=== PATIENT | female | born 1965 | race Caucasian/White ===

== ENCOUNTER → 2016-08-25 | Outpatient (CLI) | payer BC, OTHER ==
[~2016-08-25] MED LIST: ALPR1TAB6 PO; BACL10TA PO; BYSTOLIC5 MG PO; CLON1TAB3 PO; DIAZ5TAB PO; ESCI5TAB8 PO; FENT1PAT91 TD; FLUO20CA16 PO; FURO-68 PO; HYDR4TAB PO; LINA145C PO; MAGN71.5 PO; MORP100T PO; MORP100T30 PO; MORP30TA PO; MORPHINE; OLAN5TAB3 PO; OXYC20TA PO; OXYC20TA34 PO; PHEN37.568 PO; PREG75CA PO; RIVA20TA2 PO; SUMA1TAB2 PO; TIZA4CAP3 PO; TIZA6CAP3 PO; TOPI25TA32 PO; VARE1TAB21 PO; ZOLP12.54 PO; phenergan; vitamin d 3
--- NOTE | 2016-08-25 19:17 | PAIN ---
DATE OF SERVICE: 08/25/2016 PROGRESS NOTE DIAGNOSES: Atypical facial pain. HISTORY OF PRESENT ILLNESS: The patient is a 51-year-old female, who returns for followup status post medication management with both MS Contin and MS-IR. The patient reports she is doing fairly stable ____ with her medication regimen. Her pain has never quite gone in the face in general and is fairly well controlled; however, by about 70%-75% overall without significant side effects. The patient is somewhat depressed today. She has recently been diagnosed with the pancreatic mass about a week ago when she is having a biopsy of the mass tomorrow morning at ____ [facility], explained confirm the diagnosis as it is suspected pancreatic carcinoma. The patient has had a 20 pound weight loss since her last visit and is feeling very lethargic, also some increased abdominal and the mid low back pain. The patient reports the pain as 7 on a scale of 10, describes as sharp, aching and across the low back as well as the abdomen in the center of the abdomen. The patient reports she is having difficulty keeping food down, has even liquids are difficult throughout to keep down secondary to nausea and emesis. The patient describes no new motor or sensory deficits; however, no new other changes besides that mentioned. PHYSICAL EXAMINATION: VITAL SIGNS: Today, blood pressure 112/72, pulse 83, respirations 18, temperature 98.2 degrees Fahrenheit, height is 5 feet 4 inches, weight is 132 pounds. GENERAL: The patient is awake, alert, oriented, appropriate, very pleasant demeanor. HEENT: Head shows normocephalic, atraumatic. The patient shows extraocular movements intact and symmetrical. Oral cavity shows difficulty with mouth opening more than about 5 cm with significant pain and tenderness to palpation over the mastoid her muscles with hypertrophy of the master's noted on palpation as well with tenderness even with moderate palpation. The patient's good rotation or motion of cervical spine; however, including extension and flexion without significant difficulty. CHEST: Shows normal on inspection. Breath sounds are clear to auscultation bilaterally. HEART: Shows S1 and S2 clear. No murmurs are auscultated. ABDOMEN: Soft, but tender in the epigastric region, even with light palpation with some minor guarding and noted on palpation. Options were discussed with the patient and the patient's old chart was reviewed. Her current medication regimen updated. Current review of systems updated today as well. We will refill the patient's MS Contin and MS-IR as well as Topamax and Zanaflex. The patient will follow up in approximately 90 days or sooner. We discussed this in some detail of the pending diagnosis with her pancreatic biopsy tomorrow and depending on further treatment such as chemotherapy, etc. ____ follow up sooner than her 90-day appointment, if the medication adjustments need to be made. The patient understands and will follow up as necessary. The patient was given instruction as well as side effects with medication. SOM ORDONEZ MD DR: DANIEL/carlos JOB#: [id number] / [id number]
== END | disposition home or self-care (01) ==
LOC: PNCL 12:40
PROVIDERS: ATTEND Anesthesiology
DX: G50.1 Atypical facial pain (principal)
CPT/HCPCS: G0463

== ENCOUNTER → 2016-11-21 | Outpatient (CLI) | payer OTHER ==
[~2016-11-21] MED LIST changes: -ESCI5TAB8 PO; +LEXAPRO5 MG PO; -PHEN37.568 PO; +PHEN37.598 PO; -TOPI25TA32 PO; +TOPI25TA52 PO
--- NOTE | 2016-11-22 06:20 | PAIN ---
DATE OF SERVICE: 11/21/2016 DIAGNOSIS: Atypical facial pain. HISTORY OF PRESENT ILLNESS: The patient is a 51-year-old female who returns for followup status post medication management with both MS Contin and also taking Zanaflex and Topamax. The patient reports she has been on a very stable regimen of this and has been having fairly well controlled facial pain as she has previously without significant change. The patient reports her pain is a 9 on a scale of 10 at its worst and is a 5 at its least, and its average is about 6 on a scale of 10. The patient reports aching, sharp, shooting, dull, cramping, stabbing, burning and radiating severe in the bilateral masseter distributions mainly in the face and jaw. The patient reports no new motor or sensory deficits, no new changes. No side effects with the medication. Reports about 75% improvement in the pain with the medications without significant side effects. The patient is maintaining hydration, has no constipation, no dizzy, nausea, itching or dysphoria. PHYSICAL EXAMINATION: VITAL SIGNS: Today, the patient's blood pressure 133/84, pulse 67, respirations are 18, temperatures refused, weight is 136 pounds, height is 5 feet 4 inches. GENERAL: The patient is awake, alert, oriented, appropriate, very pleasant demeanor. HEENT: Shows roughly normocephalic and atraumatic. The patient does have clenched teeth appearance when she speaks does not move her mouth or open very far secondary to pain reported in the masseter and jaw region. The patient's neck shows anterior throat supple without palpable lymphadenopathy noted. Swallow reflex is symmetrical. Neck shows full rotational motion of cervical spine without significant difficulty or limitation. CHEST: Shows normal on inspection. Breath sounds clear to auscultation bilaterally. HEART: Shows S1 and S2 clear. No murmurs auscultated. ABDOMEN: Soft, nontender, nondistended. BACK: The patient's back shows spine grossly in the midline. Cervical paraspinous muscle shows symmetrical without evidence of atrophy or hypertrophy. The patient shows good rotational motion of cervical spine, both laterally as well as full extension, full forward flexion without significant exacerbation of pain. Options were discussed with the patient. The patient's old chart was reviewed as her current medication regimen updated. Current review of systems updated today as well and we will refill the patient's MS Contin ____ mg q. 12 hours. Also, continue taking Zanaflex 6 mg ____ times a day and Topamax daily. The patient was given instructions for side effects to be aware of medications, especially cautioned that is ____ constipation and taking measures to secure the medication, keep it safe and locked. The patient understands and agrees. Followup in approximately 90 days or sooner if necessary. The patient was given a 3-month prescription of each of the medications and will follow up as scheduled. SOM ORDONEZ MD DR: DANIEL/carlos JOB#: [id number] / [id number]
== END | disposition home or self-care (01) ==
LOC: PNCL 13:15
PROVIDERS: ATTEND Anesthesiology
DX: G50.1 Atypical facial pain (principal)
CPT/HCPCS: G0463

== ENCOUNTER → 2017-02-13 | Outpatient (CLI) | payer OTHER ==
[~2017-02-13] MED LIST changes: +RANI150T6 PO; +URSO300C13 PO; +[UNRECOGNIZED DRUG - OTHER]
--- NOTE | 2017-02-14 00:54 | PN ---
DATE: 02/13/2017 PROGRESS NOTE FOR PAIN CLINIC. DIAGNOSIS: Atypical facial pain. HISTORY OF PRESENT ILLNESS: The patient is a 51-year-old female who returns for followup status post medication management with both MS Contin and MSIR. The patient is a 51-year-old female who returns with reports of good control of her medication with a stable regimen of the pain medication. Also, taking trazodone and Zanaflex for muscle relaxation, which she reports both do help decrease the pain. She is having some abdominal situation with some gallbladder issues. She reportedly has spasticity of the gallbladder as well as gallstones and is seeing a patent examiner for this currently. The patient reports that her pain in the neck and the jaw is aching, sharp, dull, shooting, stabbing, constant, severe, radiating and becomes unbearable. It is a 9 on a scale of 10 at its worst, 5 on average and about 4 on a scale of 10 at its least. The patient reports no new side effects with the medication. No difficulty with the medicine regimen and reports approximately a 70% to 75% improvement with medication alone. The patient reports no constipation. No drowsiness, dizziness, itching or other complaints. The patient's K-TRACS reportedly have been appropriate to date as has her urinalysis today and we will have a urinalysis taken today as well. PHYSICAL EXAMINATION: VITAL SIGNS: The patient's blood pressure is 104/72, pulse 60, respirations are 18 and temperature is 98.2 degrees Fahrenheit, height is 5 feet 4 and she weighs 135 pounds. GENERAL: The patient is awake, alert, oriented, appropriate, has a very pleasant demeanor. HEENT: Head shows normocephalic, atraumatic. Extraocular movements are intact, symmetrical. Oral cavity, mucous membranes are moist and pink. Examination shows some moderate difficulty with opening of the mouth secondary to pain, and the patient does have a clenched jaw appearance on initial presentation. Talking with not moving her mouth necessary. Dentition is intact; however, oral cavity shows mucous membranes moist and pink. Again, significant tenderness with palpation over the TMJ, left and the right side as well, but much more tender on the left side. Some mild hypertrophy of the masseter muscle is palpable as well, left greater than right, but present and tender, with some firm musculature on palpation bilaterally. NECK: Shows anterior throat supple, without palpable lymphadenopathy noted. Swallow reflex is symmetrical. CHEST: Shows normal on inspection. Breath sounds are clear to auscultation bilaterally. HEART: Shows S1 and S2 clear. No murmurs are auscultated. ABDOMEN: Obese, soft, nontender and nondistended. No palpable organomegaly is noted. No rebound or guarding demonstrated. BACK: The patient's back shows spine grossly in the midline. Normal-appearing thoracic kyphosis and lumbar lordotic curvature. Options were discussed with the patient. The patient's old chart was reviewed as her current medication regimen updated. Current review of systems updated today as well. We will refill the patient's MS Contin as well as MSIR. The patient was given instructions as well as side effects to be aware of. Also, we will refill the patient's Topamax as well as Zanaflex with instructions and side effects to be aware of each of her medications. Also discussed hydration level and cautioned against preventing constipation as this may be common with her opiate medications, although she has not had any difficulty with it in the past. The patient also will follow up with her primary care physician to better evaluate her gallbladder situation and possibly talk to a general surgeon regarding removal if indicated. The patient will follow up in approximately 90 days, was given a 90-day supply of her medications with instructions, side effects again discussed and we will follow up as scheduled. SOM ORDONEZ MD DR: DANIEL/carlos JOB#: [id number] / [id number]
== END | disposition home or self-care (01) ==
LOC: PNCL 12:56
PROVIDERS: ATTEND Anesthesiology
DX: M54.2 Cervicalgia (principal); G50.1 Atypical facial pain
CPT/HCPCS: 99212

== ENCOUNTER → 2017-05-09 | Outpatient (CLI) | payer OTHER ==
[~2017-05-09] MED LIST changes: +SUCR1TAB35 PO
--- NOTE | 2017-05-09 23:40 | PAIN ---
DATE OF SERVICE: 05/09/2017 DIAGNOSIS: Atypical facial pain. HISTORY OF PRESENT ILLNESS: The patient is a 51-year-old female who presents for a followup status post medication management with both MS Contin and MS IR as well as Zanaflex and Topamax for headaches. The patient reports she has been doing very well with this, has been on a very stable regimen. She recently had a laparoscopic cholecystectomy and we had covered her with some extra MS IR to take, discussed it with her about a week ago. The patient has been doing well. Fortunately, she is recovering very well. Still somewhat sore in the abdomen in the right upper quadrant, but doing much better. The patient reports her pain is mostly in the jaw and teeth bilaterally as it has been previously; an 8 on a scale of 10 at its worst, 6-1/2 on average and a 4 at its least and is a 5 today. The patient reports an aching, sharp, dull, shooting, stabbing, burning, tingling, constant, radiating, severe and sometimes unbearable pain, worse with sleeping, lying on her right side; does not awaken her from sleep, now only from her jaw, but also from her abdomen over the last week or so after the surgery. The patient reports otherwise the abdominal pain is getting better. Jaw pain is about the same, but can well control with the medication by about 70-75% without significant side effects. The patient reports no new motor or sensory deficits, no new changes. PHYSICAL EXAMINATION: VITAL SIGNS: The patient's blood pressure is 115/74, pulse 70, respirations 18, temperature is 98.5 degrees Fahrenheit, height is 5 feet 4 inches, weight is 138 pounds. GENERAL: The patient is awake, alert, oriented, appropriate, very pleasant demeanor. HEENT: Shows normocephalic, atraumatic. Extraocular movements are intact, symmetrical. Oral cavity shows mucous membranes moist and pink. Dentition is intact. NECK: Shows anterior throat supple without palpable lymphadenopathy noted. Swallow reflex is symmetrical. CHEST: Shows normal on inspection. Breath sounds clear to auscultation bilaterally. HEART: Shows S1, S2 clear. ABDOMEN: Soft, nontender, nondistended. No palpable organomegaly is noted. Previous well healing surgical scars in the right upper quadrant as well as of the umbilicus, but without significant erythema or drainage. MUSCULOSKELETAL: The patient's neck shows posterior cervical musculature is symmetrical without atrophy, hypertrophy. She has full rotational motion of the cervical spine both laterally as well as extension and flexion. Examination of the patient's facial muscles and jaw shows significant tenderness over the mastoid musculature, which is in a contracted face and is very firm and tender with palpation even with light palpation. It is true into the angle of the jaw, of the mandible posteriorly, as well as inferiorly. The patient has difficulty opening the mouth, showing a very tender difficulty opening more than about 1/2 inches from teeth to teeth interface. Mucous membranes are moist and pink. Once again, no lesions, rashes or abnormalities in pigmentation noted in the buccal mucosa or on the tongue. PLAN: Options were discussed with the patient. The patient's old chart was reviewed as her current medication regimen and updated. Current review of systems updated today as well. We will refill the patient's MS Contin as well as MS IR, also Zanaflex and Topamax as prescribed with instructions and side effects to be aware of discussed with each of the medications. The patient will return to the clinic in approximately 90 days or sooner, was given a 3-month prescription for each of the medications. We will follow up at that time or sooner as necessary. The patient has had appropriate urinalysis today as well as appropriate K-TRACS reporting. SOM ORDONEZ MD DR: DANIEL/carlos JOB#: [id number] / [id number]
== END | disposition home or self-care (01) ==
LOC: PNCL 13:17
PROVIDERS: ATTEND Anesthesiology
DX: G50.1 Atypical facial pain (principal); Z98.890 Other specified postprocedural states
CPT/HCPCS: 99212

== ENCOUNTER → 2017-08-02 | Outpatient (CLI) | payer OTHER | END | disposition home or self-care (01) | LOC: PNCL 13:01 | DX: G50.1 Atypical facial pain (principal) | CPT/HCPCS: 99212 ==

== ENCOUNTER → 2017-10-25 | Outpatient (CLI) | payer OTHER | END | disposition home or self-care (01) | LOC: PNCL 13:01 | DX: M40.295 Other kyphosis, thoracolumbar region (principal); G50.1 Atypical facial pain | CPT/HCPCS: 99212 ==

== ENCOUNTER → 2018-01-17 | Outpatient (CLI) | payer OTHER ==
[~2018-01-17] MED LIST changes: -CLON1TAB3 PO; +CLON1TAB4 PO; +OXYC30TA PO; +RANI150T21 PO; -RANI150T6 PO
--- NOTE | 2018-01-18 04:36 | PAIN ---
DATE OF SERVICE: 01/17/2018 DIAGNOSIS: Atypical facial pain. HISTORY OF PRESENT ILLNESS: The patient is a 52-year-old female who returns for a followup status post medication management with both MS Contin and MS IR and Zanaflex as well as Topamax for her headaches. The patient reports that she has been doing fairly well over the last few days has some significant changes in weather with rainy weather was caused her headaches to be worse. The patient reports still significant pain in the base of the jaw, in the mastoid process as well as in the temporomandibular joint region, much worse with weather changes recently, but generally well controlled with medications about 60-70% without significant side effects. The patient does have some constipation, which she is treating with MiraLax which seems to take care of the problem by her report. The patient reports her pain is a 9.5 on scale of 10 at its worst, 8.5 on average to a 7.5 and a 6.5 at its least. The patient reports it is aching, sharp, tight, shooting, stabbing, cramping, dull, radiating, constant, unbearable, severe at times like today because she is having significant headaches from the recent weather changes. The patient reports again no other side effects besides the constipation, which is well controlled with MiraLax by her report. PHYSICAL EXAMINATION: VITAL SIGNS: Show 139/86 blood pressure, pulse is 50, respirations are 16, temperature has refused as it hurts so much to open her mouth for temperature probe, height is 5 feet 4 inches, weighs 139 pounds. GENERAL: The patient is awake, alert, oriented, appropriate, very pleasant demeanor. HEENT: Shows normocephalic, atraumatic. Oral cavity shows mucous membranes moist and pink. The patient has difficulty with jaw opening secondary to pain and is having increased hypertrophy of the masseter muscles bilaterally; even with light palpation shows significant tenderness over the masseters bilaterally, slightly more on the left than the right, but tenderness along the mandible as well as the frontal mental region of the chin, also some tenderness over the maxillary beneath the nose, some minor tenderness over the frontal sinuses as well, but not over the maxillary sinuses. The eyes show pupils equal, round, reactive to light and accommodation. Extraocular movements are intact, symmetrical. NECK: Shows anterior throat supple without palpable lymphadenopathy noted. Swallow reflex is symmetrical. The patient shows full rotational motion of cervical spine without significant difficulty. CHEST: Shows normal on inspection. Breath sounds are clear to auscultation bilaterally. HEART: Shows S1, S2 clear. No murmurs auscultated. ABDOMEN: Soft, nontender, nondistended. PLAN: Options were discussed with the patient. The patient's old chart was reviewed as her current medication regimen and updated. Current review of systems updated today as well and we will refill the patient's MS Contin and MS IR as well as Zanaflex and Topamax; all the instructions, side effects to be aware of. The patient was given a 3-month prescription. She has had appropriate K-TRACS reporting as well as appropriate urinalysis to date and will follow up in approximately 90 days or sooner if necessary. The patient was counseled on activity level, side effects to be aware of with medication regimen and will follow up in 90 days as scheduled. SOM ORDONEZ MD DR: DANIEL/carlos JOB#: [id number] / [id number]
== END | disposition home or self-care (01) ==
LOC: PNCL 12:57
PROVIDERS: ATTEND Anesthesiology
DX: G50.1 Atypical facial pain (principal)
CPT/HCPCS: G0463

== ENCOUNTER → 2018-04-11 | Outpatient (CLI) | payer OTHER ==
[~2018-04-11] MED LIST changes: +CELE200C PO
--- NOTE | 2018-04-11 21:37 | PAIN ---
DATE OF SERVICE: 04/11/2018 PROGRESS NOTE FOR PAIN CLINIC DIAGNOSIS: Atypical facial pain. HISTORY OF PRESENT ILLNESS: The patient is a 52-year-old female who returns for followup status post medication management with both MS Contin and MSIR, 100 mg MS Contin and 30 mg MSIR and also taking Celebrex. Now it is a new medication for her from her primary physician as well as Zanaflex and Topamax for headaches. The patient reports she is doing fairly well with the regimen, was feeling pretty good today, some mild sleepiness with the medication but only very mild. The patient reports she is able to function more normally with the medication and with no specific or significant side effects. The patient reports the pain is a 9-10 on a scale of 10 at its worst, 8.5 on average, 7 at its least and is a 7 today. The patient reports it is an aching, sharp, dull, shooting, sometimes stabbing, cramping, burning, tingling, radiating, constant, severe, mostly in the jaw itself, slightly worse on the right than the left on discussion today but present bilaterally. The patient has difficulty with chewing and also difficulty awakening her from sleep and she usually sleeps on one side of her face for too long. The pain becomes more severe and it does awaken her. The patient reports no side effects once again from the medication and feels fairly stable on the regimen. PHYSICAL EXAMINATION: VITAL SIGNS: The patient's blood pressure 115/71, pulse is 50, respirations 16 and temperature is refused as the patient has difficulty opening her mouth. Height is 5 feet 4 inches and weighs 147 pounds. GENERAL: The patient is awake, alert, oriented, appropriate and very pleasant demeanor. HEENT: Head shows normocephalic and atraumatic. The patient with a clenched jaw appearance with some mild distress noted with resting position. Extraocular movements are intact and symmetrical. Oral cavity shows mucous membranes moist and pink. Again, difficulty with opening the jaw past about 1 inch from the upper to lower teeth secondary to pain in the bilateral temporomandibular and jaw regions. NECK: Shows anterior throat supple without palpable lymphadenopathy noted. Swallow reflex is symmetrical. CHEST: Shows normal on inspection. Breath sounds clear to auscultation bilaterally. HEART: Shows S1 and S2 clear. No murmurs auscultated. ABDOMEN: Soft, nontender and nondistended. Options were discussed with the patient. The patient's old chart was reviewed as well as her current medication regimen updated. Current review of systems updated today as well and we will refill the patient's MS Contin as well as MSIR for a 90-day prescription as she has done quite well with this and is fairly stable with it and also has had appropriate K-TRACS reporting and appropriate urinalysis to date. The patient will follow up in approximately 90 days or sooner as necessary. The patient was counseled as to activity level as well as medication regimen and side effects to be aware of. SOM ORDONEZ MD DR: DANIEL/carlos JOB#: [id number] / [id number]
== END | disposition home or self-care (01) ==
LOC: PNCL 13:17
PROVIDERS: ATTEND Anesthesiology
DX: G50.1 Atypical facial pain (principal); Z98.890 Other specified postprocedural states
CPT/HCPCS: G0463